=== PATIENT | female | born 1960 | race Caucasian/White ===

== ENCOUNTER 2021-05-29 10:02 | Inpatient (IN) | payer OTHER ==
[2021-05-29 12:23] VITALS: BMI 26.6
[2021-05-29] MEDS ORDERED: BUPIVACAINE LIPOSOME/PF (EXPAREL) 266 MG/20 ML VIAL ONE ×2 (13:06→13:21)
[2021-05-29] MEDS ORDERED: SODIUM CHLORIDE 0.9% P/F 10 ML VIAL IJ ONE (13:06)
[2021-05-29] MEDS ORDERED: BUPIVACAINE HCL 50 ML ONE ×3 (13:06→13:35)
[2021-05-29] MEDS ORDERED: MIDAZOLAM HCL 2 MG/2 ML SINGLE DOSE VIAL ONE (13:06)
[2021-05-29] MEDS ORDERED: ceFAZolin SODIUM 1 GM VIAL ONE ×3 (13:15→20:48)
[2021-05-29] MEDS ORDERED: VANCOMYCIN 1,000 MG VIAL (RESTRICTED TO ID ONLY) ONE (13:15)
[2021-05-29] MEDS ORDERED: PROPOFOL 20 ML ONE (14:20)
[2021-05-29] MEDS ORDERED: ONDANSETRON 4 MG/2 ML VIAL IVPUSH PRN ×2 (14:20→16:02)
[2021-05-29] MEDS ORDERED: MAG HYDROX/AL HYDROX/SIMETH 30 ML UNIT-DOSE CUP PO PRN (14:20)
[2021-05-29] MEDS ORDERED: TRANEXAMIC ACID 1000 MG/10 ML VIAL ONE (14:21)
[2021-05-29] MEDS ORDERED: DEXAMETHASONE SOD PHOSPHATE 4 MG/1 ML VIAL ONE (14:21)
[2021-05-29] MEDS ORDERED: LACTATED RINGERS SOLUTION 1,000 ML IV SCH (14:30)
[2021-05-29] MEDS ORDERED: oxyCODONE HCL 5 MG TABLET PO PRN (16:02)
[2021-05-29] MEDS: ACETAMINOPHEN 500 MG TABLET (FP) PO SCH ×2 (17:40→21:19)
[2021-05-29] MEDS: oxyCODONE HCL 5 MG TABLET PO PRN (19:42)
[2021-05-29] MEDS ORDERED: DEXTROSE 5%-WATER - 50 ML IVPB ONE (20:48)
[2021-05-29] MEDS: CEFAZOLIN 2 GM in DEXTROSE 5%-WATER - 50 ML IVPB SCH (21:18)
[2021-05-29] MEDS: oxyCODONE HCL 10 MG SUSTAINED ACTING TABLET PO SCH (21:19)
[2021-05-29] MEDS: SENNOSIDES/DOCUSATE COMBO (SENNA PLUS) TABLET (UD) PO SCH (21:19)
[2021-05-30] MEDS: oxyCODONE HCL 5 MG TABLET PO PRN ×3 (00:41→08:19)
[2021-05-30] MEDS: ACETAMINOPHEN 500 MG TABLET (FP) PO SCH ×2 (05:20→10:08)
[2021-05-30] MEDS: CEFAZOLIN 2 GM in DEXTROSE 5%-WATER - 50 ML IVPB SCH (05:29)
[2021-05-30] MEDS ORDERED: ASPIRIN 325 MG TABLET PO SCH (08:00)
[2021-05-30 08:58] VITALS: BP 114/68; PULSE 84; TEMP 98.2
[2021-05-30] MEDS ORDERED: PANTOPRAZOLE 40 MG TABLET PO SCH (10:00)
[2021-05-30] MEDS ORDERED: MULTIVITAMINS (DAILY MVI) TABLET (FP) PO SCH (10:00)
[2021-05-30] MEDS: SENNOSIDES/DOCUSATE COMBO (SENNA PLUS) TABLET (UD) PO SCH (10:06)
[2021-05-30] MEDS: oxyCODONE HCL 10 MG SUSTAINED ACTING TABLET PO SCH (10:07)
[2021-05-30 10:33] LABS: HEMATOCRIT 33.3 % (32.4-45.2); HEMOGLOBIN 11.6 GM/dL (10.7-15.3); MCH 30.7 pg (25.7-33.7); MCHC 34.8 g/dl (32.0-36.0); MEAN CELL VOLUME 88.3 fl (80-96); MEAN PLT VOLUME 8.1 fl (7.5-11.1); PLATELET COUNT 180 10^3/uL (134-434); RBC 3.77 M/mm3 (3.60-5.2); WHITE BLOOD COUNT 8.6 K/mm3 (4.0-10.0)
== END 2021-05-30 13:39 | disposition home health service (06) | DRG 470 ==
LOC: FM/S 10:02
PROVIDERS: ADMIT Orthopaedic Surgery; ATTEND Orthopaedic Surgery
PROC: 0SRC0JA Replacement of Right Knee Joint with Synthetic Substitute, Uncemented, Open Approach (ICD-10-PCS; principal; 2021-05-29 14:31)
DX: M17.11 Unilateral primary osteoarthritis, right knee (principal)
CPT/HCPCS: 36415; 73560-TC-RT-FY; 85027; 94010; 94760; 97010-GP; 97116-GP; 97162-GP

== ENCOUNTER 2022-11-26 06:11 | Day surgery (SDC) | payer OTHER ==
[2022-11-19 10:18] VITALS: BMI 28.3
[2022-11-26] MEDS ORDERED: MIDAZOLAM HCL 2 MG/2 ML SINGLE DOSE VIAL ONE (06:55)
[2022-11-26] MEDS ORDERED: PROPOFOL 60 ML ONE (06:55)
[2022-11-26] MEDS ORDERED: ceFAZolin SODIUM 1 GM VIAL ONE (07:16)
[2022-11-26] MEDS ORDERED: VANCOMYCIN 1,000 MG VIAL (RESTRICTED TO ID ONLY) ONE (07:16)
[2022-11-26] MEDS ORDERED: ROPIVACAINE HCL 0.5% 30ML VIAL ONE (07:20)
[2022-11-26] MEDS ORDERED: DEXAMETHASONE SOD PHOSPHATE 4 MG/1 ML VIAL ONE (07:23)
[2022-11-26] MEDS ORDERED: TRANEXAMIC ACID 1000 MG/10 ML VIAL ONE ×2 (07:23→08:02)
[2022-11-26] MEDS ORDERED: THROMBIN (BOVINE) 5,000 UNIT VIAL TP ONE (07:26)
[2022-11-26] MEDS ORDERED: ONDANSETRON 4 MG/2 ML VIAL ONE (08:02)
[2022-11-26] MEDS ORDERED: CEFAZOLIN 2 GM in DEXTROSE 5%-WATER - 50 ML IVPB ONE (08:04)
[2022-11-26] MEDS ORDERED: VANCOMYCIN 1,000 MG VIAL (RESTRICTED TO ID ONLY) IVPB ONE (08:46)
[2022-11-26] MEDS ORDERED: TRANEXAMIC ACID 1000 MG/10 ML VIAL IVPUSH ONE (09:00)
[2022-11-26] MEDS ORDERED: GABAPENTIN 300 MG CAPSULE PO PRN (09:20)
[2022-11-26] MEDS ORDERED: LACTATED RINGERS SOLUTION 1,000 ML IV SCH (09:30)
[2022-11-26] MEDS ORDERED: oxyCODONE HCL 5 MG TABLET PO PRN (09:41)
[2022-11-26] MEDS: oxyCODONE HCL 5 MG TABLET PO PRN ×4 (11:23→21:18)
[2022-11-26] MEDS: SENNOSIDES/DOCUSATE COMBO (SENNA PLUS) TABLET (UD) PO SCH ×2 (14:27→21:17)
[2022-11-26] MEDS: PANTOPRAZOLE 40 MG TABLET PO SCH (14:28)
[2022-11-26] MEDS: MULTIVITAMINS (DAILY MVI) TABLET (FP) PO SCH (14:28)
[2022-11-26] MEDS: ACETAMINOPHEN 500 MG TABLET (FP) PO SCH ×3 (14:28→23:38)
[2022-11-26] MEDS: CEFAZOLIN SODIUM 2 GM in DEXTROSE 5%-WATER 100 ML IVPB SCH ×2 (18:01→23:37)
[2022-11-26] MEDS ORDERED: ATORVASTATIN CA 40 MG TABLET (FP) PO SCH (22:00)
[2022-11-27 01:52] VITALS: RESP 18
[2022-11-27] MEDS: oxyCODONE HCL 5 MG TABLET PO PRN ×3 (06:01→14:08)
[2022-11-27] MEDS: ACETAMINOPHEN 500 MG TABLET (FP) PO SCH ×2 (06:01→12:28)
[2022-11-27 07:48] LABS: HEMATOCRIT 35.7 % (32.4-45.2); HEMOGLOBIN 11.9 G/dL (10.7-15.3); MCH 30.3 pg (25.7-33.7); MCHC 33.2 g/dl (32.0-36.0); MEAN CELL VOLUME 91.1 fl (80-96); MEAN PLT VOLUME 7.9 fl (7.5-11.1); PLATELET COUNT 188.7 10^3/uL (134-434); RBC 3.92 10^6/uL (3.60-5.2); WHITE BLOOD COUNT 8.5 10^3/uL (4.0-10.8)
[2022-11-27] MEDS ORDERED: ASPIRIN 325 MG TABLET PO SCH (08:00)
[2022-11-27] MEDS: MULTIVITAMINS (DAILY MVI) TABLET (FP) PO SCH (10:08)
[2022-11-27] MEDS: PANTOPRAZOLE 40 MG TABLET PO SCH (10:08)
[2022-11-27] MEDS: SENNOSIDES/DOCUSATE COMBO (SENNA PLUS) TABLET (UD) PO SCH (10:08)
[2022-11-27 14:47] VITALS: BP 136/77; PULSE 89; TEMP 98.6
== END 2022-11-27 16:08 | disposition home health service (06) ==
LOC: FASUSAT 06:11 → FM/S 11:06 → FASUSAT 11-27 16:08
PROVIDERS: ATTEND Orthopaedic Surgery
PROC: 8E0Y0CZ Robotic Assisted Procedure of Lower Extremity, Open Approach (ICD-10-PCS; 2022-11-26)
PROC: 0SRD0J9 Replacement of Left Knee Joint with Synthetic Substitute, Cemented, Open Approach (ICD-10-PCS; principal; 2022-11-26 07:56)
DX: M17.12 Unilateral primary osteoarthritis, left knee (principal)
CPT/HCPCS: 20985; 27447; C1776; S2900; 36415; 73560-TC-LT-FY; 85027; 94760; 97010-GP; 97116-GP; 97161-GP; C1889